=== PATIENT | female | born 1985 | race Caucasian/White ===

== ENCOUNTER 2018-09-22 22:27 | Emergency (ER) | payer MEDICAID ==
[~2018-09-22] VITALS: Ht 175.3 cm; Wt 108.9 kg
[2018-09-22 22:45] VITALS: BP_SYST 133
[2018-09-22 23:39] LABS: INFLUENZA A&B ANTIGEN SCREEN NEGATIVE FOR A & B (NEGATIVE); STREPTOCOCCUS A SCREEN (RAPID) NEGATIVE (NEGATIVE)
--- NOTE | 2018-09-23 01:25 | NUR ---
Patient to [facility] for evaluation.
--- NOTE | 2018-09-23 01:30 | NUR ---
Patient to ER via triage for evaluation of cough, congestion and nausea x 1 week. Patient reports taking OTC cough medicine without relief. Patient is awake, alert and oriented in no acute distress, vital signs stable, respirations even and unlabored, skin warm and dry to touch. Able to ambulate without difficulty with slow, steady gait to hallway bed. Awaiting evaluation by ER MD, will continue to observe and assess.
--- NOTE | 2018-09-23 01:31 | NUR ---
ER at bedside examining patient.
[2018-09-23 02:15] VITALS: BP_SYST 130
--- NOTE | 2018-09-23 02:15 | NUR ---
Patient given written and verbal discharge instructions and verbalizes understanding. ER MD discussed with patient the results and treatment provided. Patient in stable condition. ID arm band removed. Rx of Zithromax, Cheratussin AC given. Patient educated on pain management and to follow up with PMD. Pain Scale 0. Opportunity for questions provided and answered. Medication side effect fact sheet provided. Patient left ER in no acute distress, able to ambulate without difficulty with slow, steady gait.
== END 2018-09-23 02:15 | disposition home or self-care (01) ==
LOC: SED 22:27
DX: J20.9 Acute bronchitis, unspecified (principal); Z90.49 Acquired absence of other specified parts of digestive tract; Z88.2 Allergy status to sulfonamides; Z88.8 Allergy status to other drugs, medicaments and biological substances
CPT/HCPCS: 36415; 86403; 86710; 87081; 99283